=== PATIENT | male | born 1960 | race African-American/Black ===

== ENCOUNTER 2019-08-06 11:31 | Emergency (ER) | payer MEDICARE, MEDICAID ==
[~2019-08-06] VITALS: Ht 170.2 cm; Wt 91.0 kg
[~2019-08-06 11:31] MED LIST: DIPHENOXYLATE
[2019-08-06 14:50] VITALS: BP 160/80
[2019-08-06] MEDS ORDERED: HYDROCODONE/ACETAMINOPHEN 5/325MG TABLET PO ONE (18:00)
== END 2019-08-06 19:15 | disposition left against medical advice (07) ==
LOC: ER 11:31
DX: R51 Headache (principal); R11.0 Nausea; I25.10 Atherosclerotic heart disease of native coronary artery without angina pectoris; I10 Essential (primary) hypertension
CPT/HCPCS: 71045; 99284

== ENCOUNTER 2022-01-15 16:16 | Emergency (ER) | payer MEDICARE, MEDICAID ==
[~2022-01-15] VITALS: Ht 170.2 cm; Wt 95.0 kg
[2022-01-15 16:32] VITALS: BP 137/74
[2022-01-15 19:21] LABS: HEMATOCRIT. 45.9 % (42.0-52.0); HEMOGLOBIN. 15.8 g/dL (14.0-18.0); MEAN CORPUSCULAR HEMOGLOBIN 30.2 pg (28.0-32.0); MEAN PLATELET VOLUME 8.8 fl (7.4-10.4); PLATELET 171 x1000/uL (130-400); RED BLOOD CELL COUNT 5.22 mill/uL (4.7-6.1); RED CELL DISTRIBUTION WIDTH 14.6 % (11.6-14.6)
[2022-01-15 19:29] LABS: CHLORIDE 108 mEq/L (98-107)
[2022-01-15] MEDS ORDERED: ACET-2708 MT (20:29)
[2022-01-15] MEDS ORDERED: GABA-529 MT (20:29)
[2022-01-15] MEDS ORDERED: GABAPENTIN 100MG CAPSULE PO ONE (20:30)
[2022-01-15] MEDS ORDERED: ACETAMINOPHEN 325MG TABLET PO ONE (20:30)
[2022-01-15 21:11] LABS: PLATELET ESTIMATE NORMAL
== END 2022-01-15 21:27 | disposition home or self-care (01) ==
LOC: ER 16:16
DX: R25.2 Cramp and spasm (principal); I10 Essential (primary) hypertension; Z13.9 Encounter for screening, unspecified
CPT/HCPCS: 36415; 80048; 85025; 93970; 99284

== ENCOUNTER 2022-04-14 10:53 | Emergency (ER) | payer MEDICARE, MEDICAID ==
[~2022-04-14] VITALS: Ht 172.7 cm; Wt 93.0 kg
[~2022-04-14 10:53] MED LIST changes: +ACET-2708 MT; +GABA-529 MT
[2022-04-14 11:39] VITALS: BP 179/88
[2022-04-14] MEDS ORDERED: ACETAMINOPHEN 325MG TABLET PO STA (12:02)
[2022-04-14] MEDS ORDERED: BENZ200C52 MT (17:12)
== END 2022-04-14 17:29 | disposition home or self-care (01) ==
LOC: ER 11:04
DX: K58.9 Irritable bowel syndrome, unspecified (principal); R05.9 Cough, unspecified; M79.18 Myalgia, other site; R09.81 Nasal congestion; I10 Essential (primary) hypertension; I25.2 Old myocardial infarction; I25.10 Atherosclerotic heart disease of native coronary artery without angina pectoris
CPT/HCPCS: 71045; 93005; 99283

== ENCOUNTER 2023-09-21 16:03 | Emergency (ER) | payer MEDICARE, MEDICAID ==
[~2023-09-21] VITALS: Ht 180.3 cm; Wt 77.0 kg
[~2023-09-21 16:03] MED LIST changes: +BENZ200C52 MT
[2023-09-21 16:13] VITALS: O2SAT 99
[2023-09-21 16:55] LABS: BASOPHILS % 0.8 % (0.0-2.0); EOSINOPHILS % 0.9 % (0.0-5.0); HEMATOCRIT. 47.3 % (42.0-52.0); HEMOGLOBIN. 15.5 g/dL (14.0-18.0); LYMPHOCYTES % 40.4 % (20.0-50.0); MEAN CORPUSCULAR HEMOGLOBIN 29.3 pg (28.0-32.0); MEAN CORPUSCULAR HGB CONC 32.8 g/dL (31.0-37.0); MEAN CORPUSCULAR VOLUME 89.3 fL (80.0-94.0); MEAN PLATELET VOLUME 8.8 fl (7.4-10.4); MONOCYTES % 12.8 % (2.0-8.0); NEUTROPHILS % 45.1 % (40.0-76.0); PLATELET 203 x1000/uL (130-400); RED CELL DISTRIBUTION WIDTH 14.6 % (11.6-14.6); WHITE BLOOD COUNT 9.4 x1000/uL (4.5-11.0)
[2023-09-21 17:00] LABS: CLARITY URINE CLEAR (CLEAR); COLOR URINE DARK YELLOW (YELLOW); GLUCOSE URINE NEGATIVE (NEGATIVE); KETONES URINE TRACE (NEGATIVE); LEUKOCYTE ESTERASE URINE NEGATIVE (NEGATIVE); NITRITE URINE NEGATIVE (NEGATIVE); OCCULT BLOOD URINE NEGATIVE (NEGATIVE); PROTEIN URINE 1+ (NEGATIVE); SPECIFIC GRAVITY URINE 1.042 (1.005-1.030)
[2023-09-21 17:12] LABS: BACTERIA URINE NONE SEEN; RBC URINE 0-2 /hpf (0-2); SQUAMOUS EPITHELIAL CELL URINE 1+ /lpf (RARE/1+); WBC URINE 0-2 /hpf (0-2)
[2023-09-21] MEDS ORDERED: ONDANSETRON 4MG ODT PO NR (17:15)
[2023-09-21 17:29] LABS: ALANINE AMINOTRANSFERASE 82 IU/L (10-49); ALBUMIN 4.3 g/dL (3.2-4.8); ASPARTATE AMINOTRANSFERASE 59 IU/L (<34); BILIRUBIN TOTAL 0.7 mg/dL (0.1-1.0); CALCIUM 9.4 mg/dL (8.7-10.4); CARBON DIOXIDE 27 mEq/L (21-32); CHLORIDE 105 mEq/L (98-107); GLUCOSE 136 mg/dL (70-105); POTASSIUM 3.5 mEq/L (3.5-5.1); PROTEIN TOTAL 7.5 g/dL (6.0-8.3); SODIUM 138 mEq/L (136-145); TROPONIN I HIGH SENSITIVITY 15 ng/L (3.0-53); UREA NITROGEN BLOOD 14 mg/dL (9-23)
[2023-09-21] MEDS ORDERED: ONDA4TAB50 MT (18:37)
[2023-09-21 18:45] VITALS: BP 161/81; PULSE 75; RESP 14; TEMP 98.4
== END 2023-09-21 18:54 | disposition home or self-care (01) ==
LOC: ER 16:03
DX: R10.9 Unspecified abdominal pain (principal); B34.9 Viral infection, unspecified; I10 Essential (primary) hypertension; I25.2 Old myocardial infarction; F17.200 Nicotine dependence, unspecified, uncomplicated; I82.409 Acute embolism and thrombosis of unspecified deep veins of unspecified lower extremity; I25.10 Atherosclerotic heart disease of native coronary artery without angina pectoris
CPT/HCPCS: 99284; 80053; 81003; 83690; 85025; 84484; 36415; 93005; Q0162